=== PATIENT | female | born 1995 | race Caucasian/White ===

== ENCOUNTER 2021-11-10 17:36 | Emergency (ER) | payer OTHER ==
[2021-11-10 18:09] VITALS: BP 98/62; PULSE 71; TEMP 98.9; BMI 25.9
[2021-11-10 18:37] LABS: EPITHELIAL CELLS FEW /hpf
[2021-11-10 18:50] LABS: HEMATOCRIT 40.8 % (32.4-45.2); HEMOGLOBIN 14.2 G/dL (10.7-15.3); MCH 33.2 pg (25.7-33.7); MCHC 34.8 g/dl (32.0-36.0); MEAN CELL VOLUME 95.3 fl (80-96); MEAN PLT VOLUME 8.3 fl (7.5-11.1); PLATELET COUNT 312.9 10^3/uL (134-434); RBC 4.28 10^6/uL (3.60-5.2); RDW 13.2 % (11.6-15.6); WHITE BLOOD COUNT 11.5 10^3/uL (4.0-10.8)
[2021-11-10 18:51] LABS: INR 1.03 (0.83-1.09); PROTHROMBIN TIME (PATIENT) 11.9 SEC (9.7-13.0)
[2021-11-10 18:56] LABS: ALBUMIN 4.4 g/dl (3.4-5.0); BILIRUBIN,TOTAL 0.7 mg/dl (0.2-1); CALCIUM 9.4 mg/dl (8.5-10); CREATININE 0.6 mg/dl (0.55-1.3); TOT PROT 8.3 g/dl (6.4-8.2)
[2021-11-10] MEDS ORDERED: CEPHALEXIN MONOHYDRATE 500 MG CAPSULE (UD) PO ONE (20:45)
[2021-11-10] MEDS ORDERED: CEPHALEXIN MONOHYDRATE 500 MG CAPSULE (UD) ONE (20:51)
== END 2021-11-10 21:28 | disposition home or self-care (01) ==
LOC: FER 17:36
DX: Z32.01 Encounter for pregnancy test, result positive (principal)
CPT/HCPCS: 36415; 76817-TC; 80053; 81003; 81015; 84702; 85025; 85610; 85730; 86850; 86900; 86901; 87086; 87186; 99284-25